=== PATIENT | male | born 1945 | race Caucasian/White ===

== ENCOUNTER → 2019-10-19 08:52 | Outpatient (CLI) | payer MEDICARE, BC | END | disposition home or self-care (01) | LOC: D.MRI 08:52 | PROVIDERS: ATTEND Orthopaedic Surgery | DX: M25.511 Pain in right shoulder (principal) ==

== ENCOUNTER 2019-12-18 08:15 | Day surgery (SDC) | payer MEDICARE, BC ==
[2019-12-16 10:08] LABS: HEMATOCRIT 38.2 % (42.0-54.0); HEMOGLOBIN 13.1 g/dL (13.5-17.5); MCH 32.2 pg (26.0-34.0); MCHC 34.3 g/dL (31.0-37.0); MCV 93.9 fL (80.0-100.0); MEAN PLATELET VOLUME 9.4 fL (7.4-10.4); RBC 4.07 10x6/uL (4.20-6.10); RDW 13.6 % (11.5-14.5); WBC 7.2 10x3/uL (4.8-10.8)
[~2019-12-18] VITALS: Ht 180.3 cm; Wt 84.1 kg
[~2019-12-18 08:15] MED LIST: LISINOPRIL40 MG PO; VOLTAREN75 MG PO; ZOCOR80 MG PO
[2019-12-18 09:24] VITALS: BP 154/55; BMI 25.8
[2019-12-18 09:43] VITALS: BP 154/55; Ht 180.3 cm; Wt 84.1 kg
--- NOTE | 2019-12-18 14:31 | NUR ---
1245 INSTRUCTIONS GIVEN. 1400 IV REMOVED AND PRESSURE HELD
--- NOTE | 2019-12-21 07:58 | OP ---
PATIENT NAME: NAVEEN CEDEÑO MEDICAL RECORD: [id number] :43 LOCATION:[facility] ADMISSION DATE: SURGEON: KLAUS LINDSAY DO DATE OF OPERATION: 12/18/2019 PROCEDURE PERFORMED: Right shoulder arthroscopy with rotator cuff repair with Regeneten implant, biceps tenodesis, distal clavicle excision, subacromial decompression, acromioplasty. PREOPERATIVE DIAGNOSES: Right shoulder massive rotator cuff tear of the infraspinatus and supraspinatus, SLAP tear, type 2 acromion, subacromial impingement, and AC joint arthritis. POSTOPERATIVE DIAGNOSES: Right shoulder massive rotator cuff tear of the infraspinatus and supraspinatus, SLAP tear, type 2 acromion, subacromial impingement, and AC joint arthritis. INDICATIONS: Mr. Cedeño is a 74-year-old male who has had right shoulder pain for some time. He said it started after painting for 3 days over his head and he could not stand anymore. He got a CT arthrogram after seen in the office, which showed the rotator cuff tendon tear, but it did not show retraction of the tendon or atrophy, therefore I told him we could probably fix it, though due to the massive tear, he may have loss of motion, continued pain, retear, need for further surgery, infection, bleeding, and even and he signed the consent. SURGEON: Klaus Lindsay DO DESCRIPTION OF PROCEDURE: The patient received a block by anesthesia in the preoperative area, given 900 mg clindamycin, taken to the operative suite, laid in left lateral decubitus position with the right shoulder up. He was then prepped and draped in sterile fashion after being sedated and an LMA was placed. The time-out was performed. Everyone was in agreement with the correct side, site, patient, and procedure. I then inflated the shoulder joint through a posterior portal with an 18-gauge spinal needle with 60 mL normal saline and then I established posterior portal with 11-blade scalpel, trocar and entered the joint. Anterior portal was established with an 18-gauge spinal needle and 11-blade. I saw the massive tear from the articular side as well. We went through. There was nothing posteriorly essentially and brought in a burner and checked the cartilage. The cartilage looked to be in good repair, nothing in the inferior gutter. The subscapularis tendon was also in good repair. I then brought in the bur and did a biceps tenotomy and cleaned up the labrum. I then went to the subacromial space. I established the lateral portal using 18-gauge spinal needle and 11-blade scalpel. I performed a subacromial decompression and acromioplasty, distal clavicle excision as well opened up the AC joint to approximately 7 mm. I then opened up the lateral portal, extended it, and made blunt dissection down with Army-Zimmerman's to the rotator cuff tendon tear, put 3 medial row anchors in and repaired the tendon, brought over to 2 lateral row anchors, securing it to the humerus nicely. I then put on 2 Regeneten implants, one large and one medium. The large, I put sideways posteriorly to cover the tear, stapled it into place medially and laterally and then we repeated the process more anterior with a medium patch. I then addressed the biceps tenodesis. I made an incision on the anterior humerus and carefully dissected out the long head of the biceps tendon, put a unicortical hole in and put a 2.9 unicortical biceps JuggerLoc and then cinched down the biceps tendon to the OPERATIVE REPORT [id number] NAVEEN CEDEÑO and cut the loop and brought the suture back through the biceps tendon and tied it down and cut the excess tendon and the suture at that spot. I then irrigated the open spots and Thom [place], certified surgical assistant terminal manager, closed the open and the portal sites, first the open sites with 2-0 Vicryl in inverted interrupted fashion, 4-0 Monocryl ran on the skin and the portal sites with 4-0 Monocryl in inverted interrupted fashion. He was then dressed with Dermabond, Telfa, and Tegaderm; awakened; taken to recovery in stable condition; placed in a sling. BLOOD LOSS: Minimal. COMPLICATIONS: None. NTS:[id number] Voice Confirmation ID: [id number] DOCUMENT ID: [id number] KLAUS LINDSAY DO at 0758 CC: [id number] DICTATION DATE: 12/18/19 1410 [employer]: 12/18/19 1855 [facility] 12/18/19 [facility] [address] [place], [place] [id number]
== END 2019-12-18 14:30 | disposition home or self-care (01) ==
LOC: D.OPS 08:15 → D.PAN 12:45 → D.OPS 14:30
PROVIDERS: Anesthesiology; ATTEND Orthopaedic Surgery
DX: M75.121 Complete rotator cuff tear or rupture of right shoulder, not specified as traumatic (principal); S43.431A Superior glenoid labrum lesion of right shoulder, initial encounter; X58.XXXA Exposure to other specified factors, initial encounter; M75.41 Impingement syndrome of right shoulder; M13.811 Other specified arthritis, right shoulder; M25.511 Pain in right shoulder